=== PATIENT | female | born 1955 | race Caucasian/White ===

== ENCOUNTER 2020-06-10 06:42 | Day surgery (SDC) | payer OTHER ==
[~2020-06-10] VITALS: Ht 162.6 cm; Wt 68.1 kg
[~2020-06-10 06:42] MED LIST: Norco 10-325 T1 EACH PO; Theratrum Comp1 EACH PO
[2020-06-10] MEDS ORDERED: PRAV20 (07:34)
== END 2020-06-10 09:32 | disposition home or self-care (01) ==
LOC: ORSCSDS 06:42
PROVIDERS: Internal Medicine Gastroenterology
PROC: 0DBK8ZX Excision of Ascending Colon, Via Natural or Artificial Opening Endoscopic, Diagnostic (ICD-10-PCS; principal; 2020-06-10 08:00)
PROC: 0DBN8ZX Excision of Sigmoid Colon, Via Natural or Artificial Opening Endoscopic, Diagnostic (ICD-10-PCS; principal; 2020-06-10 08:00)
PROC: 0DBL8ZX Excision of Transverse Colon, Via Natural or Artificial Opening Endoscopic, Diagnostic (ICD-10-PCS; principal; 2020-06-10 08:00)
DX: Z12.11 Encounter for screening for malignant neoplasm of colon (principal); D12.2 Benign neoplasm of ascending colon; D12.3 Benign neoplasm of transverse colon; D17.5 Benign lipomatous neoplasm of intra-abdominal organs; K64.8 Other hemorrhoids; Z86.010 Personal history of colon polyps
CPT/HCPCS: 88305; J2704; J7120